=== PATIENT | female | born 1990 | race Two or more races ===

== ENCOUNTER 2023-06-07 12:59 | Emergency (ER) | payer SELFPAY ==
[2023-06-07] MEDS ORDERED: Ibuprofen 400 MG Tab PO ONE (13:27)
[2023-06-07] MEDS ORDERED: Ondansetron 4 MG Tab.DIS PO ONE (13:50)
== END 2023-06-07 15:18 | disposition home or self-care (01) ==
LOC: MW.ED 12:59
DX: U07.1 COVID-19 (principal); F17.210 Nicotine dependence, cigarettes, uncomplicated; Z88.8 Allergy status to other drugs, medicaments and biological substances
CPT/HCPCS: 87635; 87651; 99283; A9270; U0002

== ENCOUNTER 2023-09-22 08:04 | Emergency (ER) | payer SELFPAY ==
[2023-09-22 09:05] LABS: APPEARANCE,URINE CLEAR; BILIRUBIN,URINE NEGATIVE (NEGATIVE); COLOR,URINE YELLOW; GLUCOSE,URINE NEGATIVE (NEGATIVE); KETONES,URINE NEGATIVE (NEGATIVE); LEUKOCYTE ESTERASE,URINE NEGATIVE (NEGATIVE); NITRITE,URINE NEGATIVE (NEGATIVE); OCCULT BLOOD,URINE SMALL (NEGATIVE); PROTEIN,URINE NEGATIVE (NEGATIVE); UROBILINOGEN,URINE 0.2 EU/dL (<2.0)
[2023-09-22 09:11] LABS: EPITHELIAL CELLS,URINE OCCASIONAL (NONE-FEW); RBC,URINE 0-5 (0-2/HPF); WBC,URINE 0-3 (0-5/HPF)
[2023-09-22 09:31] LABS: CANDIDA DNA PROBE NEGATIVE (NEGATIVE); GARDNERELLA DNA PROBE POSITIVE (NEGATIVE); TRICHOMONAS DNA PROBE NEGATIVE (NEGATIVE)
[2023-09-22 10:15] LABS: C. TRACHOMATIS BY PCR NOT DETECTED; N. GONORRHOEAE BY PCR NOT DETECTED
== END 2023-09-22 10:33 | disposition home or self-care (01) ==
LOC: MW.ED 08:04
DX: N76.0 Acute vaginitis (principal); B96.89 Other specified bacterial agents as the cause of diseases classified elsewhere; Z79.899 Other long term (current) drug therapy; Z88.1 Allergy status to other antibiotic agents
CPT/HCPCS: 81001; 81025; 87480; 87491; 87510; 87591; 87660; 99283; 99284